=== PATIENT | female | born 2000 | race Caucasian/White ===

== ENCOUNTER 2021-03-05 08:00 | Inpatient (IN) ==
[~2021-03-05 08:00] MED LIST: Azithromycin 500 MG in 0.9 % Sodium Chloride 250 ML IVPB PRN; Famotidine 20 MG/2 ML VIAL IVP PRN; Lidocaine 1% 20 ML MDV INFILT PRN; Metoclopramide 10 MG/2 ML VIAL IVP PRN; Naloxone 0.4 MG/ML INJ IVP PRN; Ondansetron 4 MG/2 ML VIAL IVP PRN
[2021-03-05 08:43] LABS: Basophils # 0.1 K/mcL (0.0-0.2); Basophils % 0.5 %; Eosinophils # 0.2 K/mcL (0.0-0.6); Eosinophils % 1.9 %; Hematocrit 36.1 % (35.3-44.9); Hemoglobin 11.7 g/dL (11.5-15.4); Immature Granulocytes % 0.9 % (0-4); Lymphocytes # 4.1 K/mcL (0.6-4.6); Lymphocytes % 34.3 %; Mean Corpuscular HGB Conc 32.4 g/dL (31.6-35.5); Mean Corpuscular Hemoglobin 26.6 pg (28.0-33.3); Mean Platelet Volume 11.4 fL (9.4-12.4); Monocytes # 0.8 K/mcL (0.0-1.3); Monocytes % 6.6 %; Neutrophils # 6.7 K/mcL (1.6-8.9); Platelet Count 264 K/mcL (140-400); Red Cell Distribution Width 15.6 % (11.5-14.5); Segmented Neutrophils % 55.8 %
[2021-03-05 09:01] LABS: Alanine Aminotransferase 8 Units/L (7-52); Aspartate Amino Transferase 14 Units/L (13-39); BUN/Creatinine Ratio 13 (6-26); Blood Urea Nitrogen 9 mg/dL (6-20); Glucose 77 mg/dL (70-105); Lactate Dehydrogenase 161 Units/L (140-271); Uric Acid 5.6 mg/dL (2.3-7.6); eGFR For African Americans > 60 (> 60); eGFR For Non-African Americans > 60 (> 60)
[2021-03-05 09:25] LABS: Amphetamine Screen,Urine Negative ng/mL (Cutoff=1000); Barbiturate Screen,Urine Negative ng/mL (Cutoff=200); Benzodiazepines Screen,Urine Negative ng/mL (Cutoff=200); Cannabinoid Screen,Urine Negative ng/mL (Cutoff = 50); Cocaine Screen,Urine Negative ng/mL (Cutoff= 300); Creatinine,Urine 63 mg/dL; Opiate Screen,Urine Negative ng/mL (Cutoff=300); Phencyclidine Screen,Urine Negative ng/mL (Cutoff=25)
[2021-03-05] MEDS ORDERED: EPHEDrine 50 MG/ML VIAL IVP PRN (09:37)
[2021-03-05] MEDS ORDERED: *HR* FentaNYL (PF) 100 MCG/2 ML VIAL EP ONE (09:37)
[2021-03-05] MEDS ORDERED: Ropivacaine/PF 0.2% 20 ML VIAL EP ONE (09:37)
[2021-03-05] MEDS ORDERED: Epidural Premix (fent/bupiv) 110 ML EP SCH (09:45)
[2021-03-05] MEDS ORDERED: miSOPROStoL 25 MCG TABLET PO ONE (10:44)
[2021-03-05] MEDS: Ringers Solution, Lactated 1,000 ML IVC SCH ×2 (11:35→14:00)
[2021-03-05] MEDS ORDERED: *HR* FentaNYL (PF) 100 MCG/2 ML VIAL ONE (11:38)
[2021-03-05] MEDS ORDERED: Ropivacaine/PF 0.2% 20 ML VIAL ONE (11:38)
[2021-03-05] MEDS: *HR* Nalbuphine 10 MG/ML AMPUL IV PRN ×2 (11:40→17:15)
[2021-03-05] MEDS ORDERED: *HR* Labetalol 20 MG/4 ML SYRINGE IVP ONE ×2 (12:31→12:33)
[2021-03-05] MEDS ORDERED: Oxytocin 20 units/ LR 1000 mL 20 UNIT/1,000 ML BAG IVC ONE (15:22)
[2021-03-05] MEDS ORDERED: Oxytocin 20 units/ LR 1000 mL 20 UNIT/1,000 ML BAG IVC SCH (15:30)
[2021-03-05] MEDS ORDERED: Lidocaine 1% 20 ML MDV ONE (19:23)
[2021-03-05] MEDS ORDERED: *HR* HYDROcodone/Acet 5/325 mg TABLET PO ONE (21:14)
[2021-03-06] MEDS ORDERED: *HR* HYDROcodone/Acet 5/325 mg TABLET PO PRN (01:30)
[2021-03-06] MEDS ORDERED: Oxytocin 20 units/ LR 1000 mL 20 UNIT/1,000 ML BAG IVC SCH (01:30)
[2021-03-06] MEDS ORDERED: Rho Immune Globulin 1,500 UNIT SYRINGE IM PRN (01:30)
[2021-03-06] MEDS ORDERED: Benzocaine/Menthol 56 GM AEROSOL SPRAY TP PRN (01:30)
[2021-03-06] MEDS ORDERED: Measles/Mumps/Rubella Vacc 0.5 ML VIAL SQ PRN (01:30)
[2021-03-06] MEDS ORDERED: Lanolin 7 G OINT...G. TP PRN (01:30)
[2021-03-06] MEDS ORDERED: Acetaminophen 325 MG TABLET PO PRN (01:30)
[2021-03-06] MEDS: Ibuprofen 600 MG TABLET PO PRN ×2 (01:40→07:43)
[2021-03-06] MEDS ORDERED: Prenatal Vit/FA 1 EACH TABLET PO SCH (09:00)
[2021-03-06 16:07] VITALS: BP 132/89; PULSE 99; TEMP 97.9; O2SAT 98
== END 2021-03-06 22:20 | disposition home or self-care (01) | DRG 560 ==
LOC: 1NENULAB → 1NENUOBS 03-06 01:01
PROVIDERS: ADMIT Advanced Practice Midwife; ATTEND Advanced Practice Midwife